=== PATIENT | female | born 1995 | race Caucasian/White ===

== ENCOUNTER 2017-06-20 16:29 | Outpatient (CLI) | payer OTHER ==
[2017-06-20 17:20] LABS: APPEARANCE,URINE SLIGHTLY-CLOUDY; BILIRUBIN,URINE NEGATIVE (NEGATIVE); COLOR,URINE YELLOW; GLUCOSE, URINE NEGATIVE (NEGATIVE); KETONES,URINE NEGATIVE (NEGATIVE); LEUKOCYTE ESTERASE,URINE MODERATE (NEGATIVE); NITRITE,URINE NEGATIVE (NEGATIVE); PROTEIN,URINE NEGATIVE (NEGATIVE); URINE SPECIFIC GRAVITY 1.008; UROBILINOGEN,URINE NEGATIVE mg/dL (<2.0)
[2017-06-20 17:26] LABS: AMNISURE (ROM) NEGATIVE (NEGATIVE)
--- NOTE | 2017-06-20 17:37 | Non Stress Test Report ---
Non Stress Test Datetime Report Generated by CPN: 06/20/2017 17:37 DEMOGRAPHIC EGA NST: 37.2 INDICATION Indication for Study: Ordered by Provider Indication for Study (NST) Other: Labor check MONITORING Monitor Explained: Monitor Explained; Test Explained; Patient Verbalized Understanding Time on Monitor: 06/20/2017 16:56 Time off Monitor: 06/20/2017 17:34 NST Duration: 38 NST INTERVENTIONS NST Interventions: PO Hydration; Reposition Patient Physician Notified NST: Simmons BABY A: [id number] BABY A Movement : Present Contraction Frequency : 0 FHR Baseline : 140 Accelerations : 15X15 Decelerations : None Variability : Moderate 6-25bpm NST Review: Meets Criteria for Reactive NST NST Review and Verified By : Efrain Avalos RN NST Results: Reactive NST REPORT Report Trigger: Send Report
[2017-06-20 17:44] LABS: URINE AMPHETAMINES SCREEN NEGATIVE; URINE BARBITURATES SCREEN NEGATIVE; URINE BENZODIAZEPINES SCREEN NEGATIVE; URINE COCAINE SCREEN NEGATIVE; URINE MARIJUANA (THC) SCREEN NEGATIVE; URINE METHADONE SCREEN NEGATIVE; URINE PHENCYCLIDINE SCREEN NEGATIVE
== END 2017-06-20 17:40 | disposition home or self-care (01) ==
LOC: LC 16:29
PROVIDERS: ATTEND Obstetrics & Gynecology
PROC: 4A1HXCZ Monitoring of Products of Conception, Cardiac Rate, External Approach (ICD-10-PCS; principal; 2017-06-20)
DX: Z36.89 Encounter for other specified antenatal screening (principal); Z3A.37 37 weeks gestation of pregnancy
CPT/HCPCS: 59025; 80307; 81005; 84112